=== PATIENT | female | born 1950 | race Caucasian/White ===

== ENCOUNTER → 2018-04-30 | Outpatient (CLI) | payer MEDICARE, OTHER ==
[~2018-04-30] MED LIST: ANTIDEPRESSANT; CIPR-326 PO; DILT120C PO
--- NOTE | 2018-05-01 08:54 | RADIOLOGY IMAGING REPORT ---
FACILITY: [facility] PATIENT NAME: JAVIER KRAFT : [id number] MR: [id number] V: [id number] EXAM DATE: [id number] ORDERING PHYSICIAN: DUYEN TOWNSEND TECHNOLOGIST: Sara Abraham PROCEDURE:BILATERAL DIAGNOSTIC DIGITAL MAMMOGRAM WITH CAD ASSISTED INTERPRETATION & 3D TOMOSYNTHESIS COMPARISON:Prior mammograms 07/27/15. INDICATIONS:RIGHT BREAST PAIN FINDINGS: Small to moderate amount of fibroglandular tissue is seen throughout the breasts. The parenchymal pattern has remained stable allowing for difference in mammographic technique & patient positioning. There is no evidence of malignant appearing mass, malignant appearing calcifications or other secondary sign of malignancy in either breast. DIAGNOSTIC CATEGORY 2--BENIGN FINDING. RECOMMENDATIONS: ROUTINE MAMMOGRAM AND CLINICAL EVALUATION. CLINICAL EVALUATION. IMPRESSION: BIRADS 2: Benign finding. No significant abnormality of the breast is seen. Clinical follow-up recommended for patient's Right breast pain. Dictated by: Enid Monson M.D. on 04/30/2018 at 17:01 Transcribed by: SANTANA on 05/01/2018 at 8:41 Approved by: Enid Monson M.D. on 05/01/2018 at 8:54 [facility]
--- NOTE | 2018-05-01 08:55 | RADIOLOGY IMAGING REPORT ---
FACILITY: [facility] PATIENT NAME: JAVIER KRAFT : [id number] MR: [id number] V: [id number] EXAM DATE: ORDERING PHYSICIAN: DUYEN TOWNSEND TECHNOLOGIST: Suzanne Xie RDMS PROCEDURE:US RIGHT BREAST COMPARISON:None. INDICATIONS:Right breast pain. FINDINGS: The Right breast was imaged in the 8-12 o'clock position location of patient's pain. There are several minimally prominent ducts identified although no evidence of cystic or solid mass therefore clinical follow-up recommended for patient's Right breast pain. DIAGNOSTIC CATEGORY 2--BENIGN FINDING. RECOMMENDATIONS: ROUTINE MAMMOGRAM AND CLINICAL EVALUATION. CLINICAL EVALUATION. IMPRESSION: BIRADS 2: Benign finding. No significant abnormality identified in the Right breast to account for patient's Right pain therefore clinical follow-up recommended. Dictated by: Enid Monson M.D. on 04/30/2018 at 16:59 Transcribed by: SANTANA on 05/01/2018 at 8:46 Approved by: Enid Monson M.D. on 05/01/2018 at 8:54 [facility]
== END ==
LOC: MAMO 07:11
PROVIDERS: ATTEND Nurse Practitioner Family
DX: N64.4 Mastodynia (principal); Z80.3 Family history of malignant neoplasm of breast
CPT/HCPCS: 77062; 77066